=== PATIENT | male | born 1985 | race Caucasian/White ===

== ENCOUNTER 2024-03-10 19:14 | Emergency (ER) | payer OTHER, SELFPAY ==
[2024-03-10 19:15] VITALS: BP 124/82; BMI 26.5
[2024-03-10 19:25] LABS: % Basophils 0.4 % (0-2); % Eosinophils 1.6 % (0-6); % Immature Granulocytes 0.3 % (0-0.5); % Lymphocytes 14.1 % (20.5-51.1); % Monocytes 5.9 % (1.7-9.3); % Neutrophils 77.7 % (42.2-75.2); Absolute Eosinophils 0.2 10^3/uL (0-0.7); Absolute Lymphocytes 1.6 10^3/uL (1.2-3.4); Absolute Monocytes 0.7 10^3/uL (0.1-0.6); Absolute Neutrophils 8.8 10^3/uL (1.4-6.5); Hematocrit 43.2 % (39.0-52.0); Hemoglobin 14.9 g/dL (13.0-18.0); Mean Corp Hgb Conc. 34.5 g/dL (33.0-37.0); Mean Corpuscular Hgb 28.7 pg (27.0-31.0); Mean Corpuscular Volume 83.2 fL (80.0-94.0); Mean Platelet Volume 9.3 fL (7.4-10.4); Nucleated Red Blood Cells % 0 % (-); Platelet Count 244 10^3/uL (130-400); Red Blood Cell Count 5.19 10^6/uL (4.70-6.10); Red Cell Dist. Width 13.2 % (11.5-14.5); White Blood Cell Count 11.3 10^3/uL (4.8-10.8)
[2024-03-10 19:45] LABS: ALT (SGPT) 45 U/L (0-50); AST (SGOT) 76 U/L (17-59); Albumin 4.6 g/dl (3.5-5.0); Alkaline Phosphatase 61 U/L (38-126); Blood Urea Nitrogen 18 mg/dl (9-20); Calcium 9.6 mg/dl (8.4-10.2); Carbon Dioxide 28 mmol/L (22-30); Chloride 103 mmol/L (98-107); Estimated Creatinine Clearance > 125 ml/min; Glucose 114 mg/dl (70-99); Lipase 61 U/L (23-300); Sodium 138 mmol/L (135-145); Total Bilirubin 0.3 mg/dl (0.2-1.3); Total Protein 7.3 g/dl (6.3-8.2); eGFR > 60.00
--- NOTE | 2024-03-10 22:14 | ED.GENMED ---
History of Present Illness
General
Chief Complaint: Abdominal Pain
Source: patient
Exam Limitations: none
Time Seen by Provider: 03/10/24 21:01
Travel History
Have you had any contact with someone who has COVID-19?: No
Do you have any symptoms of coronavirus? Fever > 100 degrees, chills, cough, shortness of breath, sore throat, loss of taste or smell, muscle aches, or headache?: No
History of Present Illness
History of Present Illness:
This is a 38 year old male that comes in with c/o left sided abd pain. States that he started with left sided abd pain after lunch yesterday. State that the pain has been constant but the intensity goes up and down. Denies any fever, chills, chest
pain, SOB, nausea, vomiting, diarrhea, headache, dizziness, urinary burning.
Past History
Past History
ED Past Medical History: Psychiatric (Anxiety) and Other (Vascular compression left face with Twitching, Eczema, Anemia, )
ED Past Surgical History: Cholecystectomy, Tonsilectomy, Urological (Vasectomy 1 month ago) and Other (Hernia repair)
Social History
Tobacco: Former smoker
Alcohol: Occasional
Personal:
Living: with family
Review of Systems
Review of Systems
All Other Systems: ROS reviewed and negative except as documented in HPI and ROS
Constitutional: Reports no symptoms; Denies fever or chills
EENT: Reports no symptoms
Respiratory: Reports no symptoms; Denies cough or trouble breathing
Cardiac: Reports no symptoms; Denies chest pain
ABD/GI: Reports abdominal pain; Denies nausea, vomiting or diarrhea
: Reports no symptoms; Denies dysuria, frequency or urgency
Musculoskeletal: Reports no symptoms
Skin: Reports no symptoms
Neurological: Reports no symptoms; Denies dizzy or headache
Psychiatric: Reports no symptoms
Phy Exam
General Physical Exam
General Presentation: no apparent distress
General age: appears stated age
General Skin: warm and dry
General Habitus: normal
General Mental: alert
General Hydration: appears well hydrated
ENT Exam
ENT Exam: TM's normal, pharynx normal and neck supple
Eye Exam
Eye Exam: EOMI
Cardiovascular Exam
Cardiovascular Exam: regular rate/rhythm, no edema, no murmur and normal peripheral pulses
Pulmonary Exam
Pulmonary Exam: lungs clear, no respiratory distress, no rales, chest non tender, no crackles, no rhonchi, no wheezing and no cough
Gastrointestinal Exam
Gastrointestinal Exam: normal bowel sounds, soft, no organomegaly, no pulsatile mass, non distended and tender (Slight left sided tenderness with palpation)
Musculoskeletal Exam
Musculoskeletal Exam: full ROM and no edema
Skin Exam
Skin Exam: normal color, warm/dry, no rash and no petechia
Psychiatric Exam
Psychiatric Exam: normal mood/affect
Course
Orders/Labs/Results
Orders:
Orders
03/10/24 19:20
Complete Blood Count/With Diff Urgent
Comprehensive Metabolic Panel Urgent
Lipase Urgent
03/10/24 22:13
CT Abd/pelvis W Iv Cont Urgent
Comment:
Reason For Exam: Left sided abd pain
0.9% Sodium Chloride 1000 ml [Nss] 1,000 ml IV BOLUS
Ketorolac [Toradol] 30 mg IV NOW STA
03/10/24 22:34
Urinalysis Reflex To Culture Urgent
Date Specimen was Collected: 03/10/24
Time Specimen was Collected: 22:33
Abnormal Lab Results
03/10/24 03/10/24
19:20 22:34
WBC 11.3 H 10^3/uL
(4.8-10.8)
Absolute Neuts (auto) 8.8 H 10^3/uL
(1.4-6.5)
Absolute Monos (auto) 0.7 H 10^3/uL
(0.1-0.6)
Neutrophils % 77.7 H %
(42.2-75.2)
Lymphocytes % 14.1 L %
(20.5-51.1)
Glucose 114 H mg/dl
(70-99)
AST 76 H U/L
(17-59)
Urine Ketones Trace A
(Negative)
03/10/24 19:20
03/10/24 19:20
WBC slightly elevated. Glucose nonfasting. AST elevation. Lipase normal at 61. Urine negative for infection, trace blood.
Vital Signs
Initial and Last Documented VS:
Initial Vital Signs
Temp Pulse Resp BP Pulse Ox
98.7 F 67 18 124/82 97
03/10/24 19:15 03/10/24 19:15 03/10/24 19:15 03/10/24 19:15 03/10/24 19:15
Last Documented Vital Signs
Temp Pulse Resp BP Pulse Ox
98.7 F 63 16 110/78 99
03/10/24 19:15 03/10/24 22:35 03/10/24 22:35 03/10/24 22:35 03/10/24 22:35
MDM/Problems Addressed
Differential Diagnosis Includes:
Diverticulitis. Renal calculus
MDM/Problems Addressed:
This is a 38 year old male that comes in with c/o left sided abd pain. States that this started yesterday after lunch and has continued.
Will get labs and CT scan. Will give pain medication and IV fluids.
Back into see patient. Explained that his WBC are slightly elevated. CT shows that this is most likely a Enteritis. This will go away on its own. Patient to follow up with the family doctor. IF he starts with diarrhea patient is to stay away from
Milk and milk products. Patient to return with increased or changing pain, fever, or any other concerns.
Chronic conditions affecting care:
NA
Acute Exacerbation and/or Progression of Chronic Illness:
NA
*Radiology
Radiology exam reviewed: radiology read reviewed (CT- night hawk-Compared to 06/02/2022. No specific findings to account for the patients abdominal pain. Nonobstructing stone in the right kidney. No hydronephrosis or hydroureter. No specific findings
to account for the patient's hematuria, if symptoms persist or progress consider further workup. ), all reviewed NAD by ED Provider (CT cont- Trace stranding in the root of the mesentery (karthik mesentery) and small lymph nodes, nonspecific and
probably related to inflammatory process in the small bowel/enteritis and mild panniculitis, the small bowel s otherwise grossly unremarkable. Normal appendix. Diverticulosis without ) and other (CT cont- without evidence of diverticulitis.
Cholecystectomy)
*Pulse Oximetry
Patient hypoxic: no
*EKG
Interpreted by ED Provider?: NA
Rate: EKG- N/A
*Museum Specialist Interpretation
Rate: Museum Specialist- N/A
*Critical Care Note
Total Time (30-74mins, 75-104mins- exclusive of procedures): Not Applicable
ED Attending Note
-
Portions of this chart may have been created with voice recognition software.� Occasional wrong word or��sound alike� substitutions may have occurred due to the inherent limitations of voice recognition software.
Discharge Plan
Departure
Patient Disposition: Home (Routine Discharge)
Date of Disposition: 03/11/24
Time of Disposition: 00:05
Patient with high blood pressure during this ER visit?: No
Condition: Good
Covid-19: Not Applicable
Discharge Problem:
Enteritis
Instructions: Abdominal Pain
Prescriptions:
No Action
Botox
SC Q3M
Patient Comments:
patient did not know dose
oxycodone 5 mg tablet
5 - 10 mg PO Q4HPRN PRN (Reason: moderate to severe pain) Qty: 20 0RF
Referrals:
UNKNOWN - PT DOES,NOT KNOW [Family Provider] -
Activity Restrictions/Additional Instructions:
As discussed, your blood work shows that your WBC are very slightly elevated. Your AST is also elevated. This can be rechecked by the family doctor. This can happen with alcohol use or a fatty liver. Your CT shows that this is most likely Enteritis.
This will go away on its own. You may use Tylenol 1000m every 6 hours for pain and Ibuprofen 600mg every 6 hours with food as needed for pain. Please increase your water intake to 8-8oz glasses daily. Follow up with the family doctor for recheck.
IF YOU HAVE FEVER, INCREASED OR CHANGING ABD PAIN, OR YOU HAVE ANY OTHER CONCERNS PLEASE RETURN TO THE EMERGENCY ROOM.
Interventions
Interventions:
*Risk Screen - Suicide Last Done: 03/10/24 19:15
*Neglect/Abuse Screening Last Done: 03/10/24 19:15
ED- Fall Risk Assessment Last Done: 03/10/24 19:15
Discharge Date and Time
Print Language: ESTONIAN
[2024-03-10] MEDS: NSS 1000 IV (22:22)
[2024-03-10] MEDS: TORADOL 30 MG IV (22:23)
[2024-03-10 22:35] VITALS: BP 110/78
[2024-03-10 22:47] LABS: Urine Albumin Negative (Neg - Trace); Urine Bilirubin Negative (Negative); Urine Character Clear (Clear); Urine Color Yellow; Urine Glucose Negative (Negative); Urine Ketone Trace (Negative); Urine Leukocyte Negative (Negative); Urine Nitrite Negative (Negative); Urine Occult Blood Negative (Negative); Urine Urobilinogen Negative (Neg - 1+)
[2024-03-11 00:45] VITALS: BP 110/61
== END 2024-03-11 00:58 | disposition home or self-care (01) ==
LOC: EMR 19:14
PROVIDERS: Clinical Nurse Specialist Family Health; Emergency Medicine; EMERGENCY PHYSICIAN Emergency Medicine
DX: K52.9 Noninfective gastroenteritis and colitis, unspecified (principal); N20.0 Calculus of kidney; F41.9 Anxiety disorder, unspecified; K57.30 Diverticulosis of large intestine without perforation or abscess without bleeding; D64.9 Anemia, unspecified; L30.9 Dermatitis, unspecified; Z90.49 Acquired absence of other specified parts of digestive tract; Z87.891 Personal history of nicotine dependence; Z88.5 Allergy status to narcotic agent
CPT/HCPCS: 99285; 96361; 96374; 74177; 80053; 81003; 83690; 85025; Q9967

== ENCOUNTER 2024-03-13 01:49 | Observation (INO) | payer OTHER, SELFPAY ==
[2024-03-12 18:33] VITALS: BP 129/76
[2024-03-12 19:58] VITALS: BMI 27.1
[2024-03-12 20:09] VITALS: BP 115/84
[2024-03-12] MEDS: OMNIPAQUE 50 ML PO (20:19)
--- NOTE | 2024-03-12 20:22 | ED.GENMED ---
History of Present Illness
General
Chief Complaint: Abdominal Pain
Source: patient and records
Exam Limitations: none
Time Seen by Provider: 03/12/24 18:55
Nursing documentation reviewed up to this point in time: agreed with
Travel History
Have you had any contact with someone who has COVID-19?: No
Do you have any symptoms of coronavirus? Fever > 100 degrees, chills, cough, shortness of breath, sore throat, loss of taste or smell, muscle aches, or headache?: No
History of Present Illness
History of Present Illness:
38-year-old male with a past medical history as documented who presents to the emergency department for evaluation of abdominal pain. Patient notably was seen in this emergency room [address] scan which showed questionable enteritis versus
mesenteric panniculitis was discharged with supportive care. Patient says onset of symptoms was 2 days ago�he says he woke up Friday morning and he noted left-sided abdominal pain. He says that pain has been intermittent and generally worsening
since that time. He has not had any nausea or vomiting. He has not had any diarrhea and has not been constipated�he reports normal bowel movements. He denies any dysuria, hematuria, change in urinary frequency. He has not noticed any fevers or
chills. He has not noticed any other complaints. He does have a prior surgical history of abdominal hernia repair and cholecystectomy as well as a relatively recent vasectomy.
Past History
Past History
ED Past Medical History: Psychiatric (Anxiety) and Other (Vascular compression left face with Twitching, Eczema, Anemia, )
ED Past Surgical History: Cholecystectomy, Tonsilectomy, Urological (Vasectomy 1 month ago) and Other (Hernia repair)
Social History
Tobacco: Former smoker
Alcohol: Occasional
Personal:
Living: with family
Review of Systems
Review of Systems
All Other Systems: ROS reviewed and negative except as documented in HPI and ROS
Constitutional: Denies fever or chills
EENT: Denies sore throat or runny nose
Respiratory: Denies cough or trouble breathing
Cardiac: Denies chest pain or palpitations
ABD/GI: Reports abdominal pain; Denies nausea, vomiting, diarrhea or constipated
: Denies dysuria, frequency or flank pain
Musculoskeletal: Denies neck pain or back pain
Neurological: Denies dizzy or headache
Phy Exam
Physical Exam
Physical Exam:
General: Awake, alert, oriented x3; appears uncomfortable
Head: Normocephalic, atraumatic
Eyes: Conjunctiva normal, sclera anicteric
Throat: Airway intact, handling secretions
Neck: Trachea midline, supple without meningismus
Lungs: Clear to auscultation bilaterally, no wheezing, rales, rhonchi
Heart: Regular rate and rhythm, no murmurs, gallops, or rubs
Abd: Soft, non distended, tender palpation left upper quadrant, mildly in the left lower quadrant
Back: No CVA tenderness
Neuro: No gross deficits
Skin: no rash
Extremities: Warm well-perfused
Scores
Heart Failure Risk
Heart Failure Risk Score: Not Applicable
Heart Score for Chest Pain Patients
STEMI patient?: Not applicable
Withdrawal Assessment of Alcohol
Withdrawal Assessment Completed?: Not applicable
Course
Orders/Labs/Results
Orders:
Orders
03/12/24 19:56
CT Abd/pel W Iv And Oral Contr Urgent
Comment:
Reason For Exam: left sided abd pain, worsening
Iohexol [Omnipaque] See Protocol PO NOW STA
03/12/24 20:15
Complete Blood Count/With Diff Urgent
Comprehensive Metabolic Panel Urgent
Lipase Urgent
Urinalysis Reflex To Culture Urgent
Date Specimen was Collected: 03/12/24
Time Specimen was Collected: 19:58
03/12/24 20:25
Morphine Sulfate 4 mg IV NOW STA
03/12/24 21:04
Lactate Level [Lactic Acid] Urgent
03/12/24 21:12
Ondansetron Injectable [Zofran] 4 mg .ROUTE .[facility]
03/12/24 21:13
Ondansetron Injectable [Zofran] 4 mg IV NOW STA
Abnormal Lab Results
03/12/24
20:15
BUN 8 L mg/dl
(9-20)
Creatinine 0.6 L mg/dL
(0.7-1.3)
AST 60 H U/L
(17-59)
ALT 52 H U/L
(0-50)
Urine Ketones Trace A
(Negative)
03/12/24 20:15
03/12/24 20:15
Vital Signs
Initial and Last Documented VS:
Initial Vital Signs
Temp Pulse Resp BP Pulse Ox
37.2 C 62 20 129/76 100
03/12/24 18:33 03/12/24 18:33 03/12/24 18:33 03/12/24 18:33 03/12/24 18:33
Last Documented Vital Signs
Temp Pulse Resp BP Pulse Ox
37.2 C 52 14 114/79 96
03/12/24 18:33 03/12/24 21:06 03/12/24 21:06 03/12/24 21:06 03/12/24 21:06
MDM/Problems Addressed
Differential Diagnosis Includes:
Enteritis, pancreatitis, gastritis, PUD, constipation, diverticulitis, appendicitis less likely based on exam with no right lower quadrant tenderness
MDM/Problems Addressed:
38-year-old male presents to the emergency room after second visit for abdominal pain�has been ongoing since Friday. Previously had CT with IV contrast which showed enteritis versus mesenteric panniculitis and was discharged with supportive
care. He says pain is worsening since then. He has no other symptoms aside from pain. His vital signs are normal. Exam as above. Plan to place an IV check labs including a CBC and a CMP, lipase. Check urinalysis. Will send for a repeat CT of
the abdomen pelvis this time with p.o. and IV contrast. Will treat pain. Monitor closely reassess after the above.
Labs reviewed: CBC unremarkable, CMP shows marginal elevated transaminases but normal to bilirubin, normal lipase. Urinalysis negative for infection. CT of the abdomen pelvis with shows signs consistent with enteritis versus ileus no other acute
pathology to account for his pain. Somewhat atypical picture for enteritis given lack of vomiting or diarrhea. With now second visit and pain requiring IV opiates for control will admit for overnight observation, pain control, serial exams, GI
consultation. Discussed with hospitalist for admission.
*Radiology
Radiology exam reviewed: radiology read reviewed
*Pulse Oximetry
Patient hypoxic: no
*Critical Care Note
Total Time (30-74mins, 75-104mins- exclusive of procedures): Not Applicable
Data Reviewed
Review of Other/Old Records Reveals: Labs, Records, Radiology Studies and Testing
Source: patient and records
Patient Management
Discussion with other providers: Hospitalist (Discussed with hospitalist)
Escalation/DeEscalation of care consider admission/obs:
Admission indicated
ED Attending Note
-
Portions of this chart may have been created with voice recognition software.� Occasional wrong word or��sound alike� substitutions may have occurred due to the inherent limitations of voice recognition software.
Discharge Plan
Departure
Patient Disposition: Admit
Date of Disposition: 03/13/24
Time of Disposition: 00:00
Admit to doctor: Suresh
Presentation/result/management discussed w/ accepting MD/DO: Hospitalist
Discharge Problem:
Intractable abdominal pain
Prescriptions:
No Action
Rogaine-Propecia Generic
1 applic topical DAILY
Referrals:
Stacie Lizarraga CRNP [Family Provider] -
Interventions
Interventions:
*Risk Screen - Suicide Last Done: 03/12/24 21:06
*General Assessment Last Done: 03/12/24 21:06
*Neglect/Abuse Screening Last Done: 03/12/24 21:06
ED- Fall Risk Assessment Last Done: 03/12/24 21:26
*ED COVID-19 Vaccine History Last Done: 03/12/24 20:58
UF-Jzloex-Pxgdkvfpia Assessment Last Done: 03/12/24 21:26
Discharge Date and Time
Print Language: VINCENTIAN
[2024-03-12 20:24] LABS: % Basophils 0.3 % (0-2); % Eosinophils 1.9 % (0-6); % Immature Granulocytes 0.4 % (0-0.5); % Lymphocytes 24.2 % (20.5-51.1); % Monocytes 6.8 % (1.7-9.3); % Neutrophils 66.4 % (42.2-75.2); Absolute Eosinophils 0.2 10^3/uL (0-0.7); Absolute Lymphocytes 2.2 10^3/uL (1.2-3.4); Absolute Monocytes 0.6 10^3/uL (0.1-0.6); Absolute Neutrophils 5.9 10^3/uL (1.4-6.5); Hematocrit 40.5 % (39.0-52.0); Hemoglobin 14.4 g/dL (13.0-18.0); Mean Corp Hgb Conc. 35.6 g/dL (33.0-37.0); Mean Corpuscular Hgb 29.3 pg (27.0-31.0); Mean Corpuscular Volume 82.3 fL (80.0-94.0); Mean Platelet Volume 9.3 fL (7.4-10.4); Nucleated Red Blood Cells % 0 % (-); Platelet Count 228 10^3/uL (130-400); Red Blood Cell Count 4.92 10^6/uL (4.70-6.10); Red Cell Dist. Width 13.3 % (11.5-14.5); White Blood Cell Count 8.9 10^3/uL (4.8-10.8)
[2024-03-12 20:30] LABS: Urine Albumin Negative (Neg - Trace); Urine Bilirubin Negative (Negative); Urine Character Clear (Clear); Urine Color Yellow; Urine Glucose Negative (Negative); Urine Ketone Trace (Negative); Urine Leukocyte Negative (Negative); Urine Nitrite Negative (Negative); Urine Occult Blood Negative (Negative); Urine Specific Gravity 1.015 (<1.030); Urine Urobilinogen Negative (Neg - 1+)
[2024-03-12 20:38] LABS: ALT (SGPT) 52 U/L (0-50); AST (SGOT) 60 U/L (17-59); Albumin 4.4 g/dl (3.5-5.0); Alkaline Phosphatase 61 U/L (38-126); Blood Urea Nitrogen 8 mg/dl (9-20); Calcium 9.3 mg/dl (8.4-10.2); Carbon Dioxide 27 mmol/L (22-30); Chloride 105 mmol/L (98-107); Estimated Creatinine Clearance > 125 ml/min; Glucose 96 mg/dl (70-99); Lipase 46 U/L (23-300); Sodium 139 mmol/L (135-145); Total Bilirubin 0.4 mg/dl (0.2-1.3); Total Protein 6.9 g/dl (6.3-8.2); eGFR > 60.00
[2024-03-12 21:06] VITALS: BP 114/79
[2024-03-12] MEDS: ZOFRAN 4 MG IV (21:13)
[2024-03-12] MEDS: MORPHINE SULFATE 4 MG IV (21:15)
[2024-03-12 21:21] LABS: Lactic Acid 0.9 mmol/L (0.7-2.0)
--- NOTE | 2024-03-12 21:21 | EDRN ---
Pt has had L side abd pain for 2 days. Pain is more intense and constant now which concerned pt. Pain waxes and wanes, dull always then sharp 'like a sharp rock inside being twisted back and forth.' Pt has had multiple normal bowel movements over
past 2 days. Pt has been eating light diet. Pt denies cp, sob, n/v/d/constipation, fever/chills/cough, urinary symptoms.
[2024-03-13 00:25] VITALS: BP 113/76
--- NOTE | 2024-03-13 01:19 | HPS.HSE ---
Family Physician
-
Family Physician: DENICE Mancilla
Chief Complaint
-
Abd Pain
History of Present Illness
Patient is a 38y M with no significant PMH who presents to ED complaining of abdominal pain. Patient states that he has had left-sided abdominal pain for the past 3-4 days or so. He notes that the pain is L lateral abdomen without radiation to
the chest, groin, flank. No associated N/V, fevers / chills, urinary complaints, etc. No prior history of similar symptoms. Patient was seen in the ED here on 03/[address] at that time suggested panniculitis or enteritis. He was discharged with
recommendations for supportive care. Patient states that he has taken several doses of extra strength Tylenol since that time without improvement in his symptoms. He returned to the ED this evening for further evaluation of his continued symptoms.
He has not taken and NSAIDs / anti-inflammatories in an attempt to alleviate his symptoms.
Medical History
Past Medical History
Past Medical History: Reports Other
Additional Past Medical History:
Anxiety
Eczema
Past Surgical History: Reports Other
Additional Past Surgical History:
Cholecystectomy
T&A
Left Inguinal Herniorrhaphy
Vasectomy
Social History
Tobacco: Former Smoker (Quit smoking 10 years ago. Approx 5 pack years total.)
Alcohol: Occasional
Drug: None
Family History
Family History: Other (Mother: DM, Obesity, Thyroid Disease MGF: Colon Cancer)
Allergies / Home Medications
Allergies reflects when Allergies were last updated in [facility].
Home Medications with original date entered in [facility]
Allergy/Medication List:
Allergies
Allergy/AdvReac Type Severity Reaction Status Date / Time
codeine Allergy Vomiting Verified 03/12/24 21:10
Home Medications
Rogaine-Propecia Generic 1 applic topical DAILY 03/12/24
Review of Systems
-
History Source: Patient
A 12 point ROS was completed and negative except as noted: Yes
Constitutional: Denies Fever or Chills
Respiratory: Denies Cough or Trouble Breathing
Cardiac: Denies Chest Pain or Palpitations
Abdomen/GI: Reports Abdominal Pain; Denies Nausea, Vomiting, Diarrhea, Bloody Stools, Black Stools or Anorexia
: Denies Dysuria, Frequency or Flank Pain
Musculoskeletal: Denies Joint Pain or Edema
Neurological: Denies Dizzy or Headache
Psych: Denies Depression or Anxiety
Physical Exam
Vital Signs
Vital Signs
Temp Pulse Resp BP Pulse Ox
97.8 F 54 14 113/76 95
03/13/24 00:25 03/13/24 00:25 03/13/24 00:25 03/13/24 00:25 03/13/24 00:25
Physical Exam
General: Other (38y M in no acute distress.)
HEENT: Moist mucous membranes and PERRLA
Respiratory: Clear; No Wheezes, Rales or Rhonchi
Cardiac: S1/S2 and Regular Rhythm; No Murmur
GI: Soft, Non Distended, Normal Bowel Sounds and Other (Mild tenderness L lateral abdomen (mid point between LUQ and LLQ). No rebound / guarding. Normal BS.)
Musculoskeletal: No Clubbing, No Cyanosis and No Edema
Neuro: AO x 3
Laboratory Results
-
03/12/24 20:15
03/12/24 20:15
Laboratory Results
Lactic Acid 0.9 mmol/L (0.7-2.0) 03/12/24 21:04
Total Bilirubin 0.4 mg/dl (0.2-1.3) 03/12/24 20:15
AST 60 U/L (17-59) H 03/12/24 20:15
ALT 52 U/L (0-50) H 03/12/24 20:15
Alkaline Phosphatase 61 U/L (38-126) 03/12/24 20:15
Lipase 46 U/L (23-300) 03/12/24 20:15
Impression/Plan
-
A/P: Patient is a 38y M with PMH significant for anxiety / eczema who presents to ED complaining of abdominal pain x several days.
Abdominal Pain
Enteritis v Panniculitis
- Observe overnight for further evaluation and treatment.
- Toradol / NSAIDs / anti-inflammatories for pain control.
- CT repeated tonight and there are no new findings.
- No associated GI or symptoms, fevers, etc.
- Advance diet as tolerated.
- Consider GI evaluation if symptoms do not improve with anti-inflammatory medication.
DVT Prophylaxis: SCDs
Code Status: Full
[2024-03-13 02:45] VITALS: BMI 26.4
[2024-03-13 02:51] VITALS: BP 118/72
--- NOTE | 2024-03-13 03:00 | PTCARENOTE ---
Pt was received from ED at 0255. Pt is AAOx3, pt ambulated to the room. Pt with 2/10 left sided abdominal pain/discomfort on arrival. Medicated with Tylenol. Pain med orders and care plan reviewed with pt.
[2024-03-13] MEDS: LR 1000 IV ×2 (03:11→12:52)
[2024-03-13] MEDS: TYLENOL 650 MG PO ×2 (03:16→10:36)
[2024-03-13 07:00] VITALS: BP 112/71
[2024-03-13] MEDS: NSS (PRESERVATIVE FREE) 10 ML IV (07:02)
[2024-03-13] MEDS: PROTONIX IV 40 MG IV (07:02)
[2024-03-13] MEDS: TORADOL 15 MG IV ×2 (07:03→12:55)
[2024-03-13 07:52] LABS: Erythrocyte Sed Rate 10 mm/hour (0-20)
--- NOTE | 2024-03-13 12:01 | W.PN.UPDATE ---
Update Note
Progress Note Update
Patient seen and examined after post midnight admission. No new complaints. Still with left-sided abdominal pain. Vital signs stable. No acute distress, regular rate and rhythm, normal S1-S2. Clear to auscultation bilaterally. Positive bowel
sounds, soft, nondistended, left-sided tenderness to palpation without guarding. Continue treatment plan as outlined in the H&P done on admission today.
--- NOTE | 2024-03-13 12:37 | CM ---
CM met with pt bedside
Pt resides with his spouse and 2 children (2 months and 2 years old) in a 2[address]
Full flight to 2nd floor
Pt denies use of DMEs
PCP- Stacie Lizarraga
Rx- [facility]Arleen Conteh
Pt is OBS- verbally reviewed
Copy provided
Discharge Disposition- home, no needs anticipated
--- NOTE | 2024-03-13 13:31 | PTCARENOTE ---
Patient with IVF maintained. C/O pain in left upper and lower quadrants. Toradol effective pain relief. Patient on clear liquids. Tolerating well.
[2024-03-13 15:00] VITALS: BP 113/69
--- NOTE | 2024-03-13 16:59 | W.DCSUMMARY ---
Discharge Summary
Discharge Data
Date of Admission: 03/13/24
Date of Discharge: 03/13/24
-
Pending Results: No
Hospital Course
Primary diagnoses:
Mild ileus or enteritis of the duodenum and jejunum
Secondary diagnoses:
Anxiety
Eczema
Consultants:
None
Imaging:
CT A/P:
1. Mild distention of duodenal and jejunal small bowel loops which could be secondary to a mild ileus or enteritis.
2. Severe diverticulosis in the sigmoid colon.
3. Mild biliary dilatation without evidence for obstructing mass.
4. Previous cholecystectomy.
Hospital course: 38-year-old male who was admitted earlier today after presenting with a chief complaint of abdominal pain. He reported 3 to 4 days of left-sided abdominal pain. He was in the ER on March 10, [address] scan of the abdomen and
pelvis at that time suggesting panniculitis or enteritis. CT scan of the abdomen pelvis on this hospitalization above, notable for mild distention of the duodenal and jejunal small bowel loops which could be secondary to mild ileus or enteritis.
Patient had no leukocytosis or fever AST and ALT were minimally elevated. Lipase was normal. The patient was treated supportively and discharged in medically stable condition.
Discharge Plan
-
Patient Disposition: Home (Routine Discharge)
Discharge Diagnosis/Procedures: Mild ileus or enteritis of the duodenum and jejunum
Condition: Good
Diet: No restrictions
Activity: As tolerated
Driving Restrictions: As prior to admission
Bathing Restrictions: None
Referrals:
Stacie Lizarraga CRNP [Family Provider] - in less than 1 week
Prescriptions:
Continued
Rogaine-Propecia Generic
1 applic topical DAILY
Discharge Orders:
Discharge Patient (As Directed); Ordered 03/13/24
Ordered By: Fredy Bond
Discharge Date and Time
Print Language: CITIZEN OF [place]
--- NOTE | 2024-03-13 17:21 | PTCARENOTE ---
Reviewed discharge instructions with patient. Patient verbalizes understanding of all teaching and denies questions. Removed peripheral IV. Patient left ambulatory.
== END 2024-03-13 17:17 | disposition home or self-care (01) ==
LOC: 4 EAST ACU 01:49
PROVIDERS: ADMITTING PHYSICIAN Hospitalist; ATTENDING PHYSICIAN Internal Medicine; EMERGENCY PHYSICIAN Emergency Medicine; FAMILY PHYSICIAN Nurse Practitioner Family
DX: K63.89 Other specified diseases of intestine (principal); R10.9 Unspecified abdominal pain; K57.30 Diverticulosis of large intestine without perforation or abscess without bleeding; L30.9 Dermatitis, unspecified; F41.9 Anxiety disorder, unspecified; Z90.49 Acquired absence of other specified parts of digestive tract; Z98.890 Other specified postprocedural states; Z87.891 Personal history of nicotine dependence; Z83.3 Family history of diabetes mellitus; Z83.49 Family history of other endocrine, nutritional and metabolic diseases; Z80.0 Family history of malignant neoplasm of digestive organs; Z88.5 Allergy status to narcotic agent
CPT/HCPCS: 74177; 80053; 81003; 83605; 83690; 85025; 85652; 99285; G0378; Q9967

== ENCOUNTER → 2024-05-06 06:42 | Day surgery (SDC) | payer OTHER, SELFPAY | LOC: GI 06:42 | PROVIDERS: ATTENDING PHYSICIAN Internal Medicine | DX: K20.0 Eosinophilic esophagitis (principal); K22.2 Esophageal obstruction; K22.89 Other specified disease of esophagus; K44.9 Diaphragmatic hernia without obstruction or gangrene; K31.7 Polyp of stomach and duodenum; R10.30 Lower abdominal pain, unspecified; R93.3 Abnormal findings on diagnostic imaging of other parts of digestive tract | CPT/HCPCS: 43239; 88305 ==